=== PATIENT | female | born 1985 | race Hispanic/Latino ===

== ENCOUNTER 2024-08-10 20:21 | Emergency (ER) | payer OTHER ==
[~2024-08-10] VITALS: Ht 162.6 cm; Wt 75.7 kg
[~2024-08-10 20:21] MED LIST: VALTREX1000 MG PO
[2024-08-10 20:36] VITALS: PULSE 62; RESP 18; TEMP 98.3
[2024-08-10 21:48] VITALS: BP 142/65; PULSE 68; RESP 18; TEMP 98.3; O2SAT 98
== END 2024-08-10 21:34 | disposition home or self-care (01) ==
LOC: ER 20:35
DX: M25.532 Pain in left wrist (principal); G56.02 Carpal tunnel syndrome, left upper limb; R20.0 Anesthesia of skin
CPT/HCPCS: 93005; 99283